=== PATIENT | female | born 1995 | race Caucasian/White ===

== ENCOUNTER 2017-05-04 02:58 | Inpatient (IN) | payer BC ==
[~2017-05-04] VITALS: Ht 160 cm; Wt 62.6 kg
[~2017-05-04 02:58] MED LIST: DULO60CA44 PO; OLAN10TA3 PO
[2017-05-04] MEDS ORDERED: IPRA4AER IH (03:13)
[2017-05-04] MEDS ORDERED: ZOLPIDEM TARTRATE 10 MG TABLET PO PRN (04:15)
[2017-05-04] MEDS ORDERED: LORazepam 2 MG TABLET PO PRN (04:15)
[2017-05-04] MEDS ORDERED: ACETAMINOPHEN 325 MG TABLET PO PRN (04:15)
[2017-05-04] MEDS ORDERED: HALOPERIDOL 5 MG TABLET PO PRN (04:15)
[2017-05-04] MEDS ORDERED: MAGNESIUM HYDROXIDE SUSPENSION 30 ML UDCUP PO PRN (04:15)
[2017-05-04] MEDS ORDERED: MAG HYDROX/AL HYDROX/SIMETH ES 30 ML SUSPENSION UDCUP PO PRN (04:15)
[2017-05-04 04:45] LABS: BASOPHILS % (AUTO) 0.4 % (0.0-2.0); EOSINOPHILS % (AUTO) 0.7 % (1.0-6.0); HEMATOCRIT 43.6 % (36-46); HEMOGLOBIN 14.8 g/dL (12.0-16.0); LYMPHOCYTES # (AUTO) 2.4 K/uL (1.0-4.8); LYMPHOCYTES % (AUTO) 17.6 % (22.0-44.0); MEAN CORPUSCULAR HEMOGLOBIN 28.9 pg (26.0-34.0); MEAN CORPUSCULAR HGB CONC 33.9 G/dL (31.0-37.0); MEAN CORPUSCULAR VOLUME 85 fL (80-100); MONOCYTES # (AUTO) 0.7 K/uL (0.1-1.0); MONOCYTES % (AUTO) 5.1 % (2.0-9.0); NEUTROPHILS # (AUTO) 10.5 K/uL (1.8-7.7); NEUTROPHILS % (AUTO) 76.2 % (40.0-70.0); PLATELET COUNT (AUTO) 253 K/uL (150-450); RED CELL DISTRIBUTION WIDTH 13.4 % (11.5-14.5); WHITE BLOOD COUNT (AUTO) 13.8 K/uL (4.5-11.0)
[2017-05-04] MEDS ORDERED: LORazepam 1 MG TABLET PO ONE (04:45)
[2017-05-04] MEDS ORDERED: ACETAMINOPHEN 500 MG TABLET PO ONE (04:45)
[2017-05-04 04:50] LABS: ANION GAP 11 mmol/L (8-16); CARBON DIOXIDE 25 mmol/L (22-29); CHLORIDE 105 mmol/L (98-107); CREATININE 0.72 mg/dL (0.60-1.30); GLOMERULAR FILTR. RATE CALC > 60 mL/min (>60); POTASSIUM 3.5 mmol/L (3.5-5.1); SODIUM SERUM 141 mmol/L (136-145); UREA NITROGEN, BLOOD 4 mg/dL (7-18)
[2017-05-04 04:56] LABS: ALANINE AMINOTRANSFERASE 23 U/L (12-78); ALBUMIN 4.1 g/dL (3.4-5.0); ASPARTATE AMINOTRANSFERASE 12 U/L (15-37); BILIRUBIN,TOTAL 0.5 mg/dL (0.1-1.0); TOTAL PROTEIN, SERUM 7.2 g/dL (6.4-8.2)
[2017-05-04 06:29] VITALS: BP 110/62
[2017-05-04] MEDS ORDERED: PNEUMOCOCCAL VACCINE POLYVALENT 0.5 ML VIAL [PPSV23] IM ONE (08:00)
[2017-05-04] MEDS ORDERED: ALBUTEROL SULFATE HFA 90 MCG/PUFF 8 GM INHALER IH PRN (08:45)
[2017-05-04 09:16] VITALS: BP 104/70
[2017-05-04 16:26] VITALS: BP 120/84
[2017-05-05 04:30] VITALS: BP 120/72
[2017-05-05 08:23] VITALS: BP 110/66
[2017-05-05 08:28] LABS: CHOL/HDL RATIO 2.3 (3.9-5.7)
[2017-05-05] MEDS ORDERED: DULoxetine HCL 60 MG CAPSULE PO SCH (09:00)
[2017-05-05] MEDS ORDERED: DULO60CA44 PO (09:46)
== END 2017-05-05 10:30 | disposition home or self-care (01) | DRG 885 ==
LOC: EMS 02:59 → B3A 03:48
PROVIDERS: ADMIT Psychiatry & Neurology Psychiatry; ATTEND Psychiatry & Neurology Psychiatry
DX: F33.2 Major depressive disorder, recurrent severe without psychotic features (principal); F41.9 Anxiety disorder, unspecified; F60.3 Borderline personality disorder; J45.909 Unspecified asthma, uncomplicated; Z88.0 Allergy status to penicillin; D72.829 Elevated white blood cell count, unspecified; Z72.0 Tobacco use; F10.929 Alcohol use, unspecified with intoxication, unspecified; Y90.3 Blood alcohol level of 60-79 mg/100 ml
CPT/HCPCS: 99285; G0480

== ENCOUNTER 2017-06-28 03:05 | Emergency (ER) | payer BC ==
[~2017-06-28] VITALS: Ht 160 cm; Wt 60.0 kg
[~2017-06-28 03:05] MED LIST changes: -OLAN10TA3 PO
[2017-06-28 05:08] VITALS: BP 120/70
== END 2017-06-28 05:59 | disposition home or self-care (01) ==
LOC: EMS 03:06
DX: F32.9 Major depressive disorder, single episode, unspecified (principal); F10.129 Alcohol abuse with intoxication, unspecified; J45.909 Unspecified asthma, uncomplicated; F41.9 Anxiety disorder, unspecified; F17.210 Nicotine dependence, cigarettes, uncomplicated; Z88.0 Allergy status to penicillin
CPT/HCPCS: 99285

== ENCOUNTER 2017-08-27 01:53 | Inpatient (IN) | payer BC, MEDICARE ==
[~2017-08-27] VITALS: Ht 160 cm; Wt 61.5 kg
[2017-08-27] MEDS ORDERED: ACTIVATED CHARCOAL 50 GM/240 ML SUSPENSION PO ONE (02:00)
[2017-08-27] MEDS ORDERED: CLON0.5T4 PO (02:07)
[2017-08-27] MEDS ORDERED: SODIUM CHLORIDE 0.9% 1,000 ML IV ONE ×2 (02:15→05:00)
[2017-08-27 02:22] LABS: BASOPHILS # (AUTO) 0.02 K/uL (0.00-0.20); BASOPHILS % (AUTO) 0.3 % (0.0-2.0); EOSINOPHILS # (AUTO) 0.05 K/uL (0.00-0.70); EOSINOPHILS % (AUTO) 0.53 % (1.0-6.0); HEMATOCRIT 43.7 % (36-46); HEMOGLOBIN 14.7 g/dL (12.0-16.0); LYMPHOCYTES # (AUTO) 1.5 K/uL (1.0-4.8); LYMPHOCYTES % (AUTO) 16.2 % (22.0-44.0); MEAN CORPUSCULAR HEMOGLOBIN 29.3 pg (26.0-34.0); MEAN CORPUSCULAR HGB CONC 33.6 G/dL (31.0-37.0); MEAN CORPUSCULAR VOLUME 87 fL (80-100); MONOCYTES # (AUTO) 0.6 K/uL (0.1-1.0); MONOCYTES % (AUTO) 6.2 % (2.0-9.0); NEUTROPHILS # (AUTO) 7.3 K/uL (1.8-7.7); NEUTROPHILS % (AUTO) 76.8 % (40.0-70.0); PLATELET COUNT (AUTO) 224 K/uL (150-450); RED CELL DISTRIBUTION WIDTH 12.5 % (11.5-14.5); WHITE BLOOD COUNT (AUTO) 9.5 K/uL (4.5-11.0)
[2017-08-27 02:36] LABS: ANION GAP 13 mmol/L (8-16); CALCIUM, TOTAL 9.2 mg/dL (8.8-10.5); CARBON DIOXIDE 25 mmol/L (22-29); CHLORIDE 103 mmol/L (98-107); CREATININE 0.88 mg/dL (0.60-1.30); GLOMERULAR FILTR. RATE CALC > 60 mL/min (>60); SODIUM SERUM 141 mmol/L (136-145); UREA NITROGEN, BLOOD 17 mg/dL (7-18)
[2017-08-27 02:41] LABS: ALANINE AMINOTRANSFERASE 25 U/L (12-78); ALBUMIN 4.5 g/dL (3.4-5.0); ASPARTATE AMINOTRANSFERASE 15 U/L (15-37); BILIRUBIN,TOTAL 0.5 mg/dL (0.1-1.0); TOTAL PROTEIN, SERUM 7.3 g/dL (6.4-8.2)
[2017-08-27 02:49] LABS: SALICYLATE < 2.8 mg/dL (2.8-20.0)
[2017-08-27 02:53] LABS: ACETAMINOPHEN < 2 mcg/mL (10-30)
[2017-08-27 08:35] VITALS: BP 106/69
[2017-08-27] MEDS ORDERED: HALOPERIDOL 5 MG TABLET PO PRN (09:15)
[2017-08-27 16:05] VITALS: BP 112/68
[2017-08-27] MEDS: LORazepam 2 MG TABLET PO PRN (17:51)
[2017-08-27] MEDS: DULoxetine HCL 60 MG CAPSULE PO SCH (17:51)
[2017-08-27] MEDS: ZOLPIDEM TARTRATE 10 MG TABLET PO PRN (20:18)
[2017-08-27] MEDS ORDERED: ACETAMINOPHEN 325 MG TABLET PO PRN (21:30)
[2017-08-27] MEDS ORDERED: ALBUTEROL SULFATE HFA 90 MCG/PUFF 8 GM INHALER IH PRN (21:30)
[2017-08-27] MEDS ORDERED: IBUPROFEN 400 MG TABLET PO PRN (21:30)
[2017-08-28 08:06] VITALS: BP 91/46
[2017-08-28 08:39] LABS: HEMOGLOBIN A1C 5.5 % (4.5-6.2)
[2017-08-28 09:13] LABS: THYROID STIMULATING HORMONE 1.23 uIU/mL (0.36-3.74)
[2017-08-28] MEDS: DULoxetine HCL 60 MG CAPSULE PO SCH ×2 (09:41→16:06)
[2017-08-28 16:00] VITALS: BP 102/64
[2017-08-28] MEDS: ZOLPIDEM TARTRATE 10 MG TABLET PO PRN (20:50)
[2017-08-29 08:34] VITALS: BP 122/69
[2017-08-29] MEDS: DULoxetine HCL 60 MG CAPSULE PO SCH (08:57)
[2017-08-29] MEDS ORDERED: BuPROPion HCL 150 MG SR TABLET PO SCH (09:00)
[2017-08-29] MEDS: LORazepam 2 MG TABLET PO PRN (09:02)
[2017-08-29 16:00] VITALS: BP 126/68
[2017-08-29] MEDS ORDERED: OLAN5TAB2 PO (19:19)
[2017-08-29] MEDS ORDERED: BUPR-93 PO (19:19)
[2017-08-29] MEDS: ZOLPIDEM TARTRATE 10 MG TABLET PO PRN (20:13)
[2017-08-29] MEDS ORDERED: OLANZapine 5 MG TABLET PO SCH (21:00)
[2017-08-30 06:17] VITALS: BP 100/60
[2017-08-30] MEDS ORDERED: BuPROPion HCL XL 150 MG ER TABLET PO SCH (09:00)
== END 2017-08-30 07:30 | disposition home or self-care (01) | DRG 885 ==
LOC: EMS 01:54 → AHU 07:42 → B3A 14:30
DX: F33.2 Major depressive disorder, recurrent severe without psychotic features (principal); R45.851 Suicidal ideations; T50.901A Poisoning by unspecified drugs, medicaments and biological substances, accidental (unintentional), initial encounter; F10.10 Alcohol abuse, uncomplicated; Z71.41 Alcohol abuse counseling and surveillance of alcoholic; F17.210 Nicotine dependence, cigarettes, uncomplicated; Z71.6 Tobacco abuse counseling; J45.909 Unspecified asthma, uncomplicated; Z88.0 Allergy status to penicillin
CPT/HCPCS: 51701; 83036; 84443; 93005; 96360; 96361; 99285; G0480; G0481; J7030